=== PATIENT | male | born 1995 | race African-American/Black ===

== ENCOUNTER 2017-08-14 01:19 | Emergency (ER) | payer OTHER ==
[~2017-08-14] VITALS: Ht 175.3 cm; Wt 105.0 kg
[2017-08-14] MEDS ORDERED: KETOROLAC 60MG/2ML VIAL IM ONE (01:45)
[2017-08-14 06:14] VITALS: BP 130/81
== END 2017-08-14 06:16 | disposition home or self-care (01) ==
LOC: ER 01:19
DX: M54.5 Low back pain (principal); G89.29 Other chronic pain; G43.909 Migraine, unspecified, not intractable, without status migrainosus; J45.909 Unspecified asthma, uncomplicated; F17.200 Nicotine dependence, unspecified, uncomplicated; F12.10 Cannabis abuse, uncomplicated
CPT/HCPCS: 99283; J1885; Z7610